=== PATIENT | male | born 1960 | race Caucasian/White ===

== ENCOUNTER → 2016-07-19 | Outpatient (CLI) | payer MEDICARE ==
[2016-07-19 11:42] LABS: HEMOGLOBIN 16.6 gm/dl (14.0-17.5); RED BLOOD COUNT 4.75 M/UL (4.20-5.50); WHITE BLOOD COUNT 5.7 K/UL (4.5-11.0)
[2016-07-19 12:06] LABS: BUN/CREATININE RATIO 14 (0-10)
== END ==
LOC: LAB 10:48
PROVIDERS: Family Medicine
DX: E03.9 Hypothyroidism, unspecified (principal); R53.83 Other fatigue
CPT/HCPCS: 36415; 80048; 80061; 80076; 82607; 83921; 84153; 84443; 85027

== ENCOUNTER 2021-02-12 23:45 | Emergency (ER) | payer MEDICARE, OTHER ==
[~2021-02-12 23:45] MED LIST: ACID REDUCER150 MG PO; FLOMAX0.4 MG PO; HYDROCODON-ACE1 EAC4 PO; INVANZ 1 GM VIAL1 GM IM; INVANZ 1 GM VIAL1 GM IV; K-DUR TAB 20 M20 MEQ PO; KEFLEX CAP 500500 MG PO; KLONOPIN0.5 MG PO; LEVAQUIN750 MG PO; OMEPRAZOLE20 M1 PO; OMNICEF 300 MG300 MG PO; PYRIDIUM200 MG PO; ZOFRAN ODT 4 MG4 MG SL; ZOFRAN4 MG PO; ZYLOPRIM 100 M100 MG PO
[2021-02-13 02:06] LABS: RED BLOOD COUNT 4.06 M/UL (4.20-5.50); WHITE BLOOD COUNT 6.2 K/UL (4.5-11.0)
[2021-02-13 02:23] LABS: BUN/CREATININE RATIO 14 (0-10)
== END 2021-02-13 06:59 | disposition home or self-care (01) ==
LOC: ER1 23:45
PROVIDERS: Family Medicine
DX: R51.9 Headache, unspecified (principal)
CPT/HCPCS: 70450; 80053; 85025; 85652; 93005; 96374; 96375; 99284; J0780; J1200; J2060; J2270